=== PATIENT | male | born 1980 | race African-American/Black ===

== ENCOUNTER 2016-12-25 01:27 | Emergency (ER) | payer OTHER ==
[~2016-12-25] VITALS: Ht 188 cm; Wt 102.0 kg
[~2016-12-25 01:27] MED LIST: DICL25 PO; TAMS0.4C67 PO; ZOFR4TAB3 SL
[2016-12-25 01:32] VITALS: BP 140/93; PULSE 82; RESP 14; TEMP 97.8; O2SAT 97
[2016-12-25] MEDS ORDERED: LIDOCAINE HCL 1% 50 ML VIAL XX ONE (03:15)
[2016-12-25] MEDS ORDERED: ACETAMINOPHEN/HYDROcodone 325 MG/5 MG TAB PO ONE (03:15)
[2016-12-25] MEDS ORDERED: AZITHROMYCIN PWD FOR SUSP 1 GM PACKET PO ONE (03:15)
[2016-12-25] MEDS ORDERED: SODIUM CHLORIDE 0.9% FLUSH 5 ML FLUSH IVF PRN (03:15)
[2016-12-25] MEDS ORDERED: ONDANSETRON ODT 4 MG TAB PO ONE (03:15)
[2016-12-25] MEDS ORDERED: cefTRIAXone 250 MG VIAL IM ONE (03:15)
[2016-12-25] MEDS ORDERED: ZOFR4TAB3 SL (04:55)
[2016-12-25] MEDS ORDERED: BACT800T5 PO (04:55)
--- NOTE | 2016-12-25 04:55 | PD ---
HPI Chief Complaint: Complaint Time Seen by Provider: 02:43 Travel History International Travel<30 days: No Contact w/Intl Traveler<30days: No Traveled to known affect area: No History of Present Illness HPI 36-year-old male arrives to the ER complaining of penile discharge. There is a white discharge. Neighbors noticed it today. He notes dysuria with a burning quality for about a day or so. He has one sexual partner. He does not use barrier contraception. He's had no rash or arthralgia. The patient has also had nausea vomiting and diarrhea for about 3 days. He has about 3 episodes of diarrhea per day. And he has about one episode of vomiting per day. He feels as though he may have had a fever but is not sure. He ate soup earlier and then vomited and felt better afterwards. PFSH Past Medical History Blood Disorders: No Cancer: No Cardiovascular Problems: No Diminished Hearing: No Endocrine: No Gastrointestinal Disorders: No Genitourinary: No Immune Disorder: No Implanted Vascular Access Dvce: No Kidney Stones: Yes Musculoskeletal: Yes (HERNIATED DISC) Neurologic: No Psychiatric: No Reproductive: No Respiratory: No Immunizations Current: Yes Influenza Vaccination: No Past Surgical History Pacemaker: No Other Surgery: Yes (RIGHT INDEX FINGER; BACK) Social History Alcohol Use: Yes (occasionally.) Tobacco Use: Yes (1PPD) Substance Use: No Allergies-Medications (Allergen,Severity, Reaction): Coded Allergies: No Known Allergies (Unverified , 12/25/16) Reported Meds & Prescriptions Reported Meds & Active Scripts Active No Active Prescriptions or Reported Medications Review of Systems Except as stated in HPI: all other systems reviewed are Neg Physical Exam Narrative GENERAL: 36-year-old male pleasant well-nourished well-developed. GENITOURINARY: There is trace white discharge at the urethral meatus. There is no tenderness or balanitis. SKIN: Warm and dry. HEAD: Atraumatic. Normocephalic. EYES: Pupils equal and round. No scleral icterus. No injection or drainage. ENT: No nasal bleeding or discharge. Mucous membranes pink and moist. NECK: Trachea midline. No JVD. CARDIOVASCULAR: Regular rate and rhythm. No murmur appreciated. RESPIRATORY: No accessory muscle use. Clear to auscultation. Breath sounds equal bilaterally. GASTROINTESTINAL: Abdomen soft, non-tender, nondistended. Hepatic and splenic margins not palpable. MUSCULOSKELETAL: No obvious deformities. No clubbing. No cyanosis. No edema. NEUROLOGICAL: Awake and alert. No obvious cranial nerve deficits. Motor grossly within normal limits. Normal speech. PSYCHIATRIC: Appropriate mood and affect; insight and judgment normal. Data Data Last Documented VS Vital Signs Date Time Temp Pulse Resp B/P Pulse Ox O2 Delivery O2 Flow Rate FiO2 12/25/16 02:14 20 12/25/16 01:32 97.8 82 140/93 97 Room Air Orders Azithromycin Powd Pack (Zithromax Powd P (12/25/16 03:15) Ceftriaxone Inj (Rocephin Inj) (12/25/16 03:15) Sodium Chloride 0.9% Flush (Ns Flush) (12/25/16 03:15) Lidocaine 1% Inj (50 Ml) (Xylocaine 1% I (12/25/16 03:15) Gc And Chlamydia Pcr (12/25/16 03:04) Acetamin-Hydrocod 325-5 Mg ([place] 5-325 (12/25/16 03:15) Ondansetron Odt (Zofran Odt) (12/25/16 03:15) MDM Medical Decision Making Medical Screen Exam Complete: Yes Emergency Medical Condition: Yes Medical Record Reviewed: Yes Differential Diagnosis Gonorrhea, chlamydia, UTI, balanitis, prostatitis Narrative Course Azithromycin Rocephin given. We'll send the patient home with Bactrim. Barrier contraception advised until patient's partner is treated for GC chlamydia. Return precautions discussed. Zofran for GI symptoms. Aggressive oral hydration endorsed. Diagnosis Primary Impression: Penile discharge Additional Impressions: Nausea & vomiting Qualified Code: R11.2 - Nausea and vomiting, intractability of vomiting not specified, unspecified vomiting type Diarrhea Qualified Code: R19.7 - Diarrhea, unspecified type Referrals: [facility]. Additional Instructions: You have a choice when it comes to health care, and we are glad that you chose [facility]. Hopefully, we have met your expectations on today's visit. You are welcome to return to [facility] at any time, as we are committed to meeting the health care needs of our community. Med/Other Pt SpecificInfo: Prescription(s) given Scripts Sulfamethoxazole-Trimethoprim (Bactrim DS)800-160 Mg Tab1 Tab PO BID #14 TAB Ref 0 Prov:Mynor Marroquin MD 12/25/16 Ondansetron Odt (Zofran Odt)4 Mg Tab4 Mg SL Q8HR PRN (Nausea/Vomiting) #10 TAB Ref 0 Prov:Mynor Marroquin MD 12/25/16 Disposition: 01 DISCHARGE HOME Condition: Stable Mynor Marroquin MD Dec 25, 2016 04:55
[2016-12-25 05:18] VITALS: BP 133/94; PULSE 69; RESP 14; O2SAT 97
[2016-12-25 05:36] LABS: CHLAMYDIA PCR NOT DETECTED (NOT DETECT); NEISSERIA PCR DETECTED (NOT DETECT)
== END 2016-12-25 05:19 | disposition home or self-care (01) ==
LOC: NEPC 01:27
DX: R36.9 Urethral discharge, unspecified (principal); R30.0 Dysuria; R11.2 Nausea with vomiting, unspecified; R19.7 Diarrhea, unspecified; A54.9 Gonococcal infection, unspecified; F17.210 Nicotine dependence, cigarettes, uncomplicated
CPT/HCPCS: 87491; 87591; 96372; 99284; J0696

== ENCOUNTER 2017-07-15 00:36 | Emergency (ER) | payer SELFPAY ==
[~2017-07-15] VITALS: Ht 188 cm; Wt 100.0 kg
[~2017-07-15 00:36] MED LIST changes: +BACT800T5 PO; -DICL25 PO; -TAMS0.4C67 PO
[2017-07-15 00:39] VITALS: BP 146/93; PULSE 81; RESP 16; TEMP 96.7; O2SAT 100
--- NOTE | 2017-07-15 01:53 | RADRPT ---
EXAM DATE/TIME: 07/15/2017 01:30 [place] COMPARISON: No previous studies available for comparison. INDICATIONS : Pt eating crabs 2 days ago now has pain to left lower gumline. MEDICAL HISTORY : None. SURGICAL HISTORY : None. ENCOUNTER: Initial ACUITY: 2 days PAIN SCORE: 6/10 LOCATION: Bilateral Mandible FINDINGS: Frontal, lateral, and oblique views of the mandible were performed. No fracture is seen. The condyl ar heads and necks appear normal. No dislocation is identified. Bony mineralization is normal. CONCLUSION: Unremarkable examination of the mandible. Virgil Lakhani Jr., MD on July 15, 2017 at 1:49 Board Certified Radiologist. This report was verified electronically.
[2017-07-15] MEDS ORDERED: oxyCODONE/ACETAMINOPHEN 5 MG/325 MG TAB PO ONE (02:30)
[2017-07-15] MEDS ORDERED: PERC5TAB12 PO (02:30)
--- NOTE | 2017-07-15 02:31 | PD ---
HPI Chief Complaint: Oral / Dental Pain or Problem Time Seen by Provider: 01:02 Travel History International Travel<30 days: No Contact w/Intl Traveler<30days: No Traveled to known affect area: No History of Present Illness HPI Patient is a 36-year-old male presenting to the emergency department for evaluation of left lower gum pain. Patient believes she has a piece of crab shell stuck in his gumline. He reports pain is 9 out of 10 and states it aching and throbbing. He has no other complaints at this time, no dysphasia, no fever, no chills. PFSH Past Medical History Blood Disorders: No Cancer: No Cardiovascular Problems: No Diminished Hearing: No Endocrine: No Gastrointestinal Disorders: No Genitourinary: No Immune Disorder: No Implanted Vascular Access Dvce: No Kidney Stones: Yes Musculoskeletal: Yes (HERNIATED DISC) Neurologic: No Psychiatric: No Reproductive: No Respiratory: No Immunizations Current: Yes Tetanus Vaccination: < 5 Years Influenza Vaccination: No Past Surgical History Pacemaker: No Other Surgery: Yes (RIGHT INDEX FINGER; BACK) Social History Alcohol Use: Yes (occasionally.) Tobacco Use: Yes (1PPD) Substance Use: No Allergies-Medications (Allergen,Severity, Reaction): Coded Allergies: No Known Allergies (Unverified , 12/25/16) Reported Meds & Prescriptions Reported Meds & Active Scripts Active No Active Prescriptions or Reported Medications Review of Systems Except as stated in HPI: all other systems reviewed are Neg HENT: Positive: Dental Difficulties Physical Exam Narrative GENERAL: Well developed, well-nourished, alert male. Appears uncomfortable, in no acute distress. SKIN: Warm and dry. HEAD: Normocephalic. MOUTH: Mucous membranes moist, no lesions, tongue and gums appear normal. Third molar erupting through the gumline EYES: No scleral icterus. No injection or drainage. NECK: Supple, trachea midline. No JVD or lymphadenopathy. CARDIOVASCULAR: Regular rate and rhythm without murmurs, gallops, or rubs. RESPIRATORY: Breath sounds equal bilaterally. No accessory muscle use. GASTROINTESTINAL: Abdomen soft, non-tender, nondistended. MUSCULOSKELETAL: No cyanosis, or edema. BACK: Nontender without obvious deformity. No CVA tenderness. Data Data Last Documented VS Vital Signs Date Time Temp Pulse Resp B/P (MAP) Pulse Ox O2 Delivery O2 Flow Rate FiO2 07/15/17 00:39 96.7 81 16 146/93 (110) 100 Room Air Orders Orders Mandible, Complete (Min 4vws) (07/15/17 ) Oxycodone-Acetamin 5-325 Mg (Percocet (07/15/17 02:30) MDM Medical Decision Making Medical Screen Exam Complete: Yes Emergency Medical Condition: Yes Interpretation(s) Last Impressions Mandible X-Ray 07/15/17 0000 Signed Impressions: Service Date/Time: Saturday, July 15, 2017 01:30 - CONCLUSION: Unremarkable examination of the mandible. Virgil Lakhani Jr., MD Vital Signs Date Time Temp Pulse Resp B/P (MAP) Pulse Ox O2 Delivery O2 Flow Rate FiO2 07/15/17 00:39 96.7 81 16 146/93 (110) 100 Room Air Differential Diagnosis Retained foreign object versus abscess versus tooth eruption versus other Narrative Course Patient was under for evaluation of possible piece of crab shell stuck in his left lower gumline. On exam it was noted that he actually had his third molar erupting through the gumline. Imaging was ordered to reassure patient that there was no foreign body. Given Percocet for pain as he does appear uncomfortable. Vital signs are stable. He was advised to follow-up with his dentist tomorrow. He was encouraged to return to emergency department for any new or worsening symptoms. Patient verbalized understanding of instructions. Patient is stable for discharge. Diagnosis Primary Impression: Tooth eruption Referrals: Dentist 1 day Patient Instructions: General Instructions Additional Instructions: Follow-up with your dentist Take medication as needed and as directed for pain Return to emergency department for any new or worsening symptoms Med/Other Pt SpecificInfo: Prescription(s) given Scripts Oxycodone-Acetaminophen (Percocet) 5-325 mg Tab 1 TAB PO Q6H Y for PAIN, #5 TAB 0 Refills Prov: Mei Buenrostro 07/15/17 Disposition: 01 DISCHARGE HOME Condition: Stable Mei Buenrostro Jul 15, 2017 02:31
== END 2017-07-15 02:41 | disposition home or self-care (01) ==
LOC: NEPD 00:36
DX: K00.6 Disturbances in tooth eruption (principal); F17.200 Nicotine dependence, unspecified, uncomplicated; Z87.442 Personal history of urinary calculi
CPT/HCPCS: 70110; 99283